=== PATIENT | female | born 1975 | race American Indian/Alaskan Native ===

== ENCOUNTER 2017-02-15 10:02 | Emergency (ER) | payer BC, OTHER ==
[2017-02-15 10:02] VITALS: BMI 36.8
[2017-02-15] MEDS ORDERED: Oxycodone/Acetaminophen 5/325 mg Tab PO STA (10:48)
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
[2017-02-15 12:43] VITALS: BP 126/72; PULSE 74; RESP 20; TEMP 98.5; O2SAT 99
--- NOTE | 2017-02-15 14:10 | RAD ---
PROCEDURE: Lumbar spine 02/15/2017 HISTORY: Pain. COMPARISON: No prior. FINDINGS: BONES: No acute compression fractures no retropulsed fragments. Vertebral bodies exhibit normal stature and alignment. Facets normally aligned. DISC SPACES: Lumbar disc space heights are relatively maintained. There appears to be some minor disc space narrowing in the lower thoracic region. Small marginal anterior osteophyte formation noted at the T11-T12 level. Facet arthropathy L5-S1 through the L3-L4 levels in somewhat decreasing order of severity OTHER FINDINGS: None. IMPRESSION: No acute fractures. Minor degenerative spondylosis as above
--- NOTE | 2017-02-15 14:12 | RAD ---
PROCEDURE: Left Hip X-ray Radiographs. HISTORY: pain COMPARISON: None. FINDINGS: BONES: No evidence of acute displaced fracture nor dislocation. The osseous structures appear intact. Both femoral heads appropriately located within the respective acetabula. JOINTS: Joint spaces relatively preserved. Slight spurring along the superolateral margins of the acetabular roofs. SI joints are intact and patent with minimal sclerosis. SOFT TISSUES: Normal. OTHER FINDINGS: None. IMPRESSION: No acute fractures. Minor spurring along the superolateral margins of the acetabular roofs.
== END 2017-02-15 12:43 | disposition home or self-care (01) ==
LOC: ED 10:02
DX: M25.552 Pain in left hip (principal); M51.26 Other intervertebral disc displacement, lumbar region; Z85.3 Personal history of malignant neoplasm of breast

== ENCOUNTER 2017-11-10 08:50 | Emergency (ER) | payer BC, OTHER ==
[2017-11-10 08:50] VITALS: BMI 36.8
[2017-11-10 10:03] LABS: URINE BILIRUBIN NEGATIVE (NEGATIVE); URINE BLOOD MODERATE (NEGATIVE); URINE GLUCOSE (UA) NEGATIVE (NEGATIVE); URINE LEUKOCYTE ESTERASE NEGATIVE Leu/uL (NEGATIVE); URINE PROTEIN TRACE mg/dL (<30 mg/dL); URINE UROBILINOGEN 0.2 E.U./dL (<1 E.U./dL)
[2017-11-10 10:05] LABS: URINE APPEARANCE CLEAR (CLEAR); URINE COLOR YELLOW (YELLOW)
[2017-11-10 10:24] LABS: BASO # 0.01 K/mm3 (0.0-2.0); BASO % 0.1 % (0.0-3.0); EOS # 0.1 (0.0-0.7); GRAN # 5.59 (1.4-6.5); GRAN % 64.8 % (50.0-68.0); HEMOGLOBIN 11.1 g/dL (12.0-16.0); LYMPH # 2.4 (1.2-3.4); LYMPH % 27.5 % (22.0-35.0); MEAN CELL VOLUME 74.8 fl (80.0-105.0); MEAN CORPUSCULAR HEMOGLOBIN 23.7 pg (25.0-35.0); MEAN CORPUSCULAR HGB CONC 31.6 g/dl (31.0-37.0); MEAN PLATELET VOLUME 9.4 fl (7.0-11.0); MONO # 0.6 (0.1-0.6); MONO % 6.6 % (1.0-6.0); RBC 4.69 10^6/uL (3.5-6.1); RED CELL DISTRIBUTION WIDTH 18.1 % (11.5-14.5); WHITE BLOOD COUNT 8.6 10^3/ul (4.5-11.0)
[2017-11-10 10:25] LABS: URINE WBC NEGATIVE /hpf (0-6)
[2017-11-10 11:06] LABS: ALBUMIN 4.2 g/dL (3.0-4.8); ALT/SGPT 47 U/L (7-56); AST/SGOT 69 U/L (14-36); BLOOD UREA NITROGEN 9 mg/dL (7-21); CALCIUM 9.4 mg/dL (8.4-10.5); GFR AFRICAN-AMERICAN > 60; GFR NON-AFRICAN AMERICAN > 60; LIPASE 108 U/L (23-300)
[2017-11-10 11:11] VITALS: RESP 18
[2017-11-10 11:16] LABS: INR 1.09 (0.93-1.08); PARTIAL THROMBOPLASTIN TIME 34.8 Seconds (25.1-36.5); PROTHROMBIN TIME 12.6 SECONDS (9.4-12.5)
--- NOTE | 2017-11-10 12:21 | ED PDOC ---
Arrival/HPI - General Chief Complaint: Female Genitourinary Time Seen by Provider: 11/10/17 09:51 Historian: Patient - History of Present Illness Narrative History of Present Illness (Text): 11/10/17 12:18 42yo female with PMhx of Pelvic mass who present to ED requesting abdominal Ct for left sided pelvic/groin pain. She notes that she has been having this pain for a while now. States it became worse recently, making it difficult to ambulate. states her oncologist request abdominal CT to r/o cancer progression. States she is currently getting treatment for her cancer. She denies nausea, vomiting, diarrhea, constipation, urinary symptoms, hematemesis, chest pain, back pain, any other complaint. Past Medical History - Provider Review Nursing Documentation Reviewed: Yes - Infectious Disease Hx of Infectious Diseases: None - Tetanus Immunization Tetanus Immunization: Unknown - Cardiac Hx Cardiac Disorders: No - Pulmonary Hx Respiratory Disorders: No - Neurological Hx Neurological Disorder: No - HEENT Hx HEENT Disorder: No - Renal Hx Renal Disorder: No - Endocrine/Metabolic Hx Endocrine Disorders: No - Hematological/Oncological Hx Blood Disorders: Yes Hx Cancer: Yes Other/Comment: Liver CA, BREAST CA - Integumentary Hx Dermatological Disorder: No - Musculoskeletal/Rheumatological Hx Musculoskeletal Disorders: Yes Hx Back Pain: Yes Hx Herniated Disk: Yes - Gastrointestinal Hx Gastrointestinal Disorders: Yes Hx Gastroesophageal Reflux: Yes - Genitourinary/Gynecological Hx Genitourinary Disorders: Yes Other/Comment: tubal ligation - Psychiatric Hx Psychophysiologic Disorder: No Hx Depression: No Hx Emotional Abuse: No Hx Physical Abuse: No Hx Substance Use: No - Surgical History Hx Mastectomy: Yes (left) Hx Tubal Ligation: Yes Other/Comment: Liver Surgery. - Suicidal Assessment Feels Threatened In Home Enviroment: No Family/Social History - Physician Review Nursing Documentation Reviewed: Yes Family/Social History: Unknown Family HX Smoking Status: Never Smoked Hx Alcohol Use: No Hx Substance Use: No Hx Substance Use Treatment: No Allergies/Home Meds Allergies/Adverse Reactions: Allergies amoxicillin Allergy (Verified 11/10/17 09:21) RASH Home Medications: Home Meds Medication Instructions Recorded Confirmed No Known Home Med 11/10/17 11/10/17 Review of Systems - Physician Review All systems were reviewed & negative as marked: Yes - Review of Systems Constitutional: Normal Eyes: Normal ENT: Normal Respiratory: Normal Cardiovascular: Normal Gastrointestinal: Abdominal Pain. absent: Constipation, Diarrhea, Nausea, Vomiting, Hematochezia, Hematemesis Genitourinary Female: Normal Musculoskeletal: Normal Skin: Normal Neurological: Normal Endocrine: Normal Hemo/Lymphatic: Normal Psychiatric: Normal Physical Exam Vital Signs Reviewed: Yes Vital Signs Temp Pulse Resp BP Pulse Ox 11/10/17 13:24 98 F 69 18 106/51 L 98 11/10/17 12:39 98 F 98 H 18 102/56 L 98 11/10/17 11:11 78 18 104/79 99 11/10/17 09:22 98.8 F 91 H 16 100/68 98 Temperature: Afebrile Blood Pressure: Normal Pulse: Regular Respiratory Rate: Normal Appearance: Positive for: Well-Appearing, Non-Toxic, Comfortable Pain Distress: None Mental Status: Positive for: Alert and Oriented X 3 - Systems Exam Head: Present: Atraumatic, Normocephalic Pupils: Present: PERRL Extroacular Muscles: Present: EOMI Conjunctiva: Present: Normal Mouth: Present: Moist Mucous Membranes Neck: Present: Normal Range of Motion Respiratory/Chest: Present: Clear to Auscultation, Good Air Exchange. No: Respiratory Distress, Accessory Muscle Use Cardiovascular: Present: Regular Rate and Rhythm, Normal S1, S2. No: Murmurs Abdomen: Present: Tenderness (Left pelvic tenderness), Other (Soft). No: Distention, Normal Bowel Sounds, Peritoneal Signs, Rebound, Guarding, Rovsing's Sign Present Back: Present: Normal Inspection Upper Extremity: Present: Normal Inspection. No: Cyanosis, Edema Lower Extremity: Present: Normal Inspection. No: Edema Neurological: Present: GCS=15, CN II-XII Intact, Speech Normal Skin: Present: Warm, Dry, Normal Color. No: Rashes Psychiatric: Present: Alert, Oriented x 3, Normal Insight, Normal Concentration Medical Decision Making ED Course and Treatment: 11/10/17 20:09 Pt in ED for stated history. Lab was nonspecific . She was comfortable in ED Abdominal/pelvic CT IMPRESSION: There is a lytic destructive lesion in the anterior left pelvis involving the acetabulum and iliac bone. This is unchanged. 2 x 2.7 cm lesion in the left lobe of the liver consistent with recurrent metastatic disease Result was DW the pt and she DC home with a copy of the CT. Referred to her PMD. - Lab Interpretations Lab Results: 11/10/17 10:10 11/10/17 10:51 Lab Results 11/10/17 10:51: Sodium 144, Potassium 3.5 L, Chloride 102, Carbon Dioxide 30, Anion Gap 16, BUN 9, Creatinine 0.5 L, Est GFR ( Amer) > 60, Est GFR (Non -Af Amer) > 60, Random Glucose 110, Calcium 9.4, Magnesium 2.2, Total Bilirubin 0.4, AST 69 H, ALT 47, Alkaline Phosphatase 125, Total Protein 8.4 H, Albumin 4.2, Globulin 4.2, Albumin/Globulin Ratio 1.0 L, Lipase 108 11/10/17 10:51: PT 12.6 H, INR 1.09 H, APTT 34.8 11/10/17 10:10: WBC 8.6, RBC 4.69, Hgb 11.1 L, Hct 35.1 L, MCV 74.8 L, MCH 23.7 L, MCHC 31.6, RDW 18.1 H, Plt Count 240, MPV 9.4, Gran % 64.8, Lymph % (Auto) 27.5, [place] % (Auto) 6.6 H, Eos % (Auto) 1.0 L, Baso % (Auto) 0.1, Gran # 5.59, Lymph # (Auto) 2.4, [place] # (Auto) 0.6, Eos # (Auto) 0.1, Baso # (Auto) 0.01 11/10/17 09:50: Urine Color Yellow, Urine Appearance Clear, Urine pH 6.0, Ur Specific [place] 1.015, Urine Protein Trace H, Urine Glucose (UA) Negative, Urine Ketones Negative, Urine Blood Moderate H, Urine Nitrate Negative, Urine Bilirubin Negative, Urine Urobilinogen 0.2, Ur Leukocyte Esterase Negative, Urine RBC 5 - 10, Urine WBC Negative - RAD Interpretation Radiology Orders: 11/10/17 09:51 ABD PELVIS PO & IV CONTRAST [CT] Stat Disposition/Present on Arrival - Present on Arrival Any Indicators Present on Arrival: No History of DVT/PE: No History of Uncontrolled Diabetes: No Urinary Catheter: No History of Decub. Ulcer: No History Surgical Site Infection Following: None - Disposition Have Diagnosis and Disposition been Completed?: Yes Diagnosis: Abdominal pain, Liver mass, left lobe, Pelvic pain Disposition: HOME/ ROUTINE Disposition Time: 13:10 Patient Plan: Discharge Condition: STABLE Discharge Instructions (ExitCare): Chronic Pelvic Pain in Women, Acute Abdomen (Belly Pain), Adult (DC) Additional Instructions: Follow up with your doctor Return to ED for any new symptoms Referrals: Reilly Cassidy MD [Primary Care Provider] - Follow up with primary Forms: [employer] ([place]ican)
[2017-11-10 12:40] VITALS: TEMP 98; O2SAT 98
--- NOTE | 2017-11-10 12:43 | CT ---
PROCEDURE: CT Abdomen and Pelvis with contrast HISTORY: Left pelvic pain COMPARISON: PET-CT 06/09/2017 TECHNIQUE: Contrast dose: 100 cc of Omni 350 Radiation dose: Total exam DLP = 983 mGy-cm. This CT exam was performed using one or more of the following dose reduction techniques: Automated exposure control, adjustment of the mA and/or kV according to patient size, and/or use of iterative reconstruction technique. FINDINGS: LOWER THORAX: Unremarkable. LIVER: There is a 2 x 2.7 cm lesion in the left lobe of the liver consistent with metastatic disease. This could be seen on the previous PET-CT. It is more well-defined on the current exam. A suture line is also seen adjacent to this lesion GALLBLADDER AND BILE DUCTS: Unremarkable. PANCREAS: Unremarkable. No gross lesion or ductal dilatation. SPLEEN: Unremarkable. ADRENALS: Unremarkable. No mass. KIDNEYS AND URETERS: Unremarkable. No hydronephrosis. No solid mass. VASCULATURE: Unremarkable. No aortic aneurysm. BOWEL: Unremarkable. No obstruction. No gross mural thickening. APPENDIX: Normal appendix. PERITONEUM: Unremarkable. No free fluid. No free air. LYMPH NODES: Unremarkable. No enlarged lymph nodes. BLADDER: Unremarkable. REPRODUCTIVE: Unremarkable. BONES: There is a lytic destructive lesion in the anterior left pelvis involving the acetabulum and iliac bone. This is unchanged. OTHER FINDINGS: None. IMPRESSION: There is a lytic destructive lesion in the anterior left pelvis involving the acetabulum and iliac bone. This is unchanged. 2 x 2.7 cm lesion in the left lobe of the liver consistent with recurrent metastatic disease
[2017-11-10 13:25] VITALS: BP 106/51; PULSE 69
== END 2017-11-10 13:24 | disposition home or self-care (01) ==
LOC: ED 08:50
DX: R16.0 Hepatomegaly, not elsewhere classified (principal); R10.2 Pelvic and perineal pain; R10.9 Unspecified abdominal pain; K21.9 Gastro-esophageal reflux disease without esophagitis; Z85.3 Personal history of malignant neoplasm of breast

== ENCOUNTER 2018-07-30 05:32 | Outpatient (CLI) | payer BC, OTHER | END 2018-07-30 05:33 | disposition home or self-care (01) | LOC: PET-BROA 05:32 | DX: C79.51 Secondary malignant neoplasm of bone (principal) ==

== ENCOUNTER 2018-09-02 09:31 | Outpatient (CLI) | payer BC, OTHER | END 2018-09-02 09:32 | disposition home or self-care (01) | LOC: CARDIO 09:31 ==